=== PATIENT | male | born 1980 | race Hispanic/Latino ===

== ENCOUNTER 2023-02-13 14:21 | Inpatient (IN) | payer SELFPAY ==
[2023-02-13] MEDS ORDERED: Rocuronium Bromide 10 MG/ML (10ML VIAL) ONE (14:26)
[2023-02-13] MEDS ORDERED: Propofol 1,000 MG/100 ML VIAL IV ONE (14:38)
[2023-02-13 14:56] LABS: Actual Bicarbonate (HCO3a) 21.3 mEq/L (22-28); Analyzer IN Cardio ER; Base Excess (BEa) -2.6 mEq/L (-2.0 to +3.0); CO2 Tension 34.6 mmHg (35.0-45.0); Calcium, Ionized (arterial) 1.07 mmol/L (1.12-1.30); Carboxyhemoglobin (COHb) 0.3 gm% (0.0-3.0); Hematocrit-ABG 44 % (42.0-52.0); Hemoglobin (Hb) 15.1 g/dL (14.0-18.0); O2 Tension (PaO2), arterial 306.1 mmHg (80.0-100.0); Potassium - ABG Lab 3.16 mmol/L (3.70-5.30); pH, Arterial 7.407 (7.35-7.45)
[2023-02-13 14:58] LABS: Puncture Site RRA
[2023-02-13 15:13] LABS: #Eosinphils 0.2 thou/uL (0.0-0.7); #Monocytes 0.9 thou/uL (0.11-0.59); #Neutrophils 3.3 thou/uL (1.40-6.50); %Basophils 0.5 % (0.0-1.0); %Lymphocytes 37.8 % (21.0-51.0); %Monocytes 12.9 % (0.0-10.0); %Neutrophils 45.7 % (42.0-75.0); Hemoglobin 14.4 g/dL (14.0-18.0); Mean Corpuscular HGB CONC 33.4 g/dL (32.0-36.0); Mean Corpuscular Hemoglobin 31.5 pg (27.0-31.0); Mean Corpuscular Volume 94.3 fl (78.0-98.0); Mean Platelet Volume 9.6 fL (7.4-10.4); Platelet Count 322 10x3/uL (130-400); RBC Distribution Width 12.5 % (11.5-14.5); Red Blood Cell (RBC) Count 4.57 mill/uL (4.70-6.10); White Blood Cell (WBC) Count 7.3 10x3/uL (4.8-10.8)
[2023-02-13] MEDS ORDERED: Iopamidol-370 76% 500 ML MDV (1 ML CHARGE) ONE (15:18)
[2023-02-13 15:23] LABS: Bacteria/HPF None Seen HPF (None Seen); Bilirubin Negative (Negative); Blood, Urine Negative (Negative); CAUTI Indications for Culture Alt mental st,lethar; Clarity Clear (Clear); Glucose, Urine (Dipstick) Normal (Negative); Ketone, Urine Negative (Negative); Leukocyte Negative Leu/uL (Negative); Nitrite Negative (Negative); Protein, Urine (Dipstick) Negative (Neg-Trace); RBC/HPF 0-3 HPF (0-3); Specific Gravity, Urine 1.004 (1.002-1.036); Squamous Epithelial None Seen HPF (0-3); Urobilinogen Normal mg/dL (Less than 2); WBC/HPF None Seen HPF (0-3)
[2023-02-13 15:29] LABS: Urine Culture Reflex No No
[2023-02-13 15:31] LABS: Amphetamine Detected (NotDetected); Barbiturates Screen Not Detected (NotDetected); Benzodiazepine Screen Not Detected (NotDetected); Cocaine Metabolite Screen Detected (NotDetected); Methadone Not Detected (NotDetected); Methamphetamine Detected (NotDetected); Opiate Screen Not Detected (NotDetected); Oxycodone Screen Not Detected (NotDetected); Phencyclidine (PCP) Not Detected (NotDetected); THC/Cannabinoid Screen Not Detected (NotDetected); Tricyclic Screen Not Detected (NotDetected)
[2023-02-13 15:42] LABS: ALT (SGPT) 260 U/L (8-55); AST (SGOT) 221 U/L (5-34); Alkaline Phosphatase 86 U/L (40-110); Anion Gap 12 mmol/L (10-20); BUN (Urea Nitrogen) 5 mg/dL (8.9-20.6); Bilirubin, Total 0.5 mg/dL (0.2-1.2); Calc. Creatinine Clearance 0 mL/min (70-130); Calcium 8.2 mg/dL (7.8-10.44); Carbon Dioxide 24 mmol/L (22-29); Chloride 106 mmol/L (98-107); Estimated GFR 118; Glucose 106 mg/dL (70-105); Potassium 3.2 mmol/L (3.5-5.1); Sodium 139 mmol/L (136-145)
[2023-02-13 15:44] LABS: Acetaminophen Less than 10 mcg/mL (10.0-30.0); Alcohol 470.1 mg/dL (Less than 10); Lipase 37 U/L (8-78); Salicylate Less than 8.0 mg/dL (15.0-30.0)
[2023-02-13] MEDS ORDERED: Fentanyl CADD 100 ML IV SCH ×2 (15:45→17:45)
[2023-02-13 15:59] LABS: SARS-CoV-2 NAA Rapid Test Not Detected (NotDetected)
[2023-02-13] MEDS ORDERED: Vecuronium 10 MG VIAL IVP PRN (16:07)
[2023-02-13] MEDS ORDERED: Ventilator Sedation Protocol 1 EACH FS SCH (16:07)
[2023-02-13] MEDS ORDERED: Electrolyte Replacement Protocol 1 EACH FS SCH (16:07)
[2023-02-13] MEDS ORDERED: Thiamine HCl 200 MG/2 ML VIAL SLOW IVP SCH (16:15)
[2023-02-13] MEDS ORDERED: Ondansetron PF 4 MG/2 ML Vial IVP PRN (17:00)
[2023-02-13] MEDS ORDERED: Sodium Chloride 0.9% 1,000 ML IV SCH (17:00)
[2023-02-13] MEDS ORDERED: Acetaminophen 650 MG Suppository PR PRN (17:00)
[2023-02-13] MEDS ORDERED: Acetaminophen 325 MG TAB PO PRN (17:00)
[2023-02-13] MEDS: Lactated Ringer's 1,000 ML IV SCH ×2 (17:00→22:42)
[2023-02-13] MEDS ORDERED: Lorazepam 2 MG/ML VIAL ONE (17:12)
[2023-02-13 17:21] VITALS: BMI 27.1
[2023-02-13] MEDS ORDERED: DISCONTINUE PREVIOUS NARCOTIC PAIN MEDICATIONS AND BENZODIAZEPINES FS SCH (17:45)
[2023-02-13] MEDS ORDERED: Propofol BOLUS 1,000 MG/100 ML VIAL IV PRN (17:45)
[2023-02-13] MEDS ORDERED: Lorazepam 2 MG/ML VIAL SLOW IVP PRN (17:45)
[2023-02-13] MEDS ORDERED: Propofol 1,000 MG/100 ML VIAL IV PRN (17:45)
[2023-02-13] MEDS ORDERED: Morphine 2 MG/ML VIAL SLOW IVP PRN (17:45)
[2023-02-13] MEDS ORDERED: Fentanyl BOLUS 250 ML IVPB PRN (17:45)
[2023-02-13] MEDS: Potassium Chloride 20 MEQ in Premix Bag 1 BAG IVPB SCH ×2 (18:38→20:17)
[2023-02-13] MEDS ORDERED: Lactated Ringer's 500 ML IV SCH (22:30)
[2023-02-14] MEDS ORDERED: Dexmedetomidine In 0.9 % NaCl 100 ML IVPB SCH (00:45)
[2023-02-14] MEDS ORDERED: Dexmedetomidine 400 MCG, Admixture Fee 1 EACH in Sodium Chloride 0.9% 96 ML IVPB SCH (01:45)
[2023-02-14] MEDS: Lactated Ringer's 1,000 ML IV SCH ×2 (02:47→06:00)
[2023-02-14 03:47] LABS: #Eosinphils 0.1 thou/uL (0.0-0.7); #Monocytes 0.7 thou/uL (0.11-0.59); #Neutrophils 6.8 thou/uL (1.40-6.50); %Basophils 0.4 % (0.0-1.0); %Eosinophils 1.5 % (0.0-10.0); %Monocytes 7.5 % (0.0-10.0); %Neutrophils 72.3 % (42.0-75.0); Hemoglobin 12.4 g/dL (14.0-18.0); Mean Corpuscular HGB CONC 33.5 g/dL (32.0-36.0); Mean Corpuscular Hemoglobin 31.9 pg (27.0-31.0); Mean Corpuscular Volume 95.1 fl (78.0-98.0); Mean Platelet Volume 9.6 fL (7.4-10.4); Platelet Count 262 10x3/uL (130-400); RBC Distribution Width 12.7 % (11.5-14.5); Red Blood Cell (RBC) Count 3.89 mill/uL (4.70-6.10); White Blood Cell (WBC) Count 9.4 10x3/uL (4.8-10.8)
[2023-02-14 04:17] LABS: ALT (SGPT) 206 U/L (8-55); AST (SGOT) 160 U/L (5-34); Albumin 3.2 g/dL (3.5-5.0); Alcohol 182.1 mg/dL (Less than 10); Alkaline Phosphatase 67 U/L (40-110); Anion Gap 17 mmol/L (10-20); BUN (Urea Nitrogen) 4 mg/dL (8.9-20.6); Bilirubin, Total 0.6 mg/dL (0.2-1.2); Calc. Creatinine Clearance 171 mL/min (70-130); Carbon Dioxide 16 mmol/L (22-29); Chloride 109 mmol/L (98-107); Estimated GFR 120; Globulin 2.3 g/dL (2.4-3.5); Glucose 83 mg/dL (70-105); Phosphorus 3.4 mg/dL (2.3-4.7); Potassium 3.5 mmol/L (3.5-5.1); Protein, Total 5.5 g/dL (6.0-8.3); Sodium 138 mmol/L (136-145)
[2023-02-14 07:17] VITALS: BP 123/79
[2023-02-14 07:46] LABS: Actual Bicarbonate (HCO3a) 20.2 mEq/L (22-28); Base Excess (BEa) -3.3 mEq/L (-2.0 to +3.0); CO2 Tension 31.8 mmHg (35.0-45.0); Calcium, Ionized (arterial) 1.08 mmol/L (1.12-1.30); Carboxyhemoglobin (COHb) 0.3 gm% (0.0-3.0); Hematocrit-ABG 40 % (42.0-52.0); Hemoglobin (Hb) 13.7 g/dL (14.0-18.0); O2 Tension (PaO2), arterial 131.9 mmHg (80.0-100.0); Potassium - ABG Lab 3.74 mmol/L (3.70-5.30)
[2023-02-14 07:48] LABS: Puncture Site RRA
[2023-02-14] MEDS: Potassium Chloride 20 MEQ in Premix Bag 1 BAG IVPB SCH ×2 (07:56→10:13)
[2023-02-14] MEDS ORDERED: Magnesium 2 GM/50 ML(in water) 2 GM in Premix Bag 1 BAG IVPB SCH (08:00)
[2023-02-14] MEDS ORDERED: Multivit, Chewable SF 1 TAB PO SCH (09:00)
[2023-02-14] MEDS ORDERED: Pantoprazole 40 MG VIAL IVP SCH (09:00)
[2023-02-14] MEDS ORDERED: Folic Acid 1 MG TAB PO SCH (09:00)
[2023-02-14 12:19] VITALS: TEMP 98.6
== END 2023-02-14 12:15 | disposition home or self-care (01) | DRG 896 ==
LOC: ERS 14:21 → CCU 16:58
PROVIDERS: ADMIT Internal Medicine Critical Care Medicine; ATTEND Internal Medicine
PROC: 0D9670Z Drainage of Stomach with Drainage Device, Via Natural or Artificial Opening (ICD-10-PCS; principal; 2023-02-13)
PROC: 5A1935Z Respiratory Ventilation, Less than 24 Consecutive Hours (ICD-10-PCS; 2023-02-13)
PROC: 0BH17EZ Insertion of Endotracheal Airway into Trachea, Via Natural or Artificial Opening (ICD-10-PCS; 2023-02-13)
PROC: 4A033R1 Measurement of Arterial Saturation, Peripheral, Percutaneous Approach (ICD-10-PCS; 2023-02-13)
DX: F10.129 Alcohol abuse with intoxication, unspecified (principal); J96.00 Acute respiratory failure, unspecified whether with hypoxia or hypercapnia; F19.10 Other psychoactive substance abuse, uncomplicated; E87.6 Hypokalemia; R91.8 Other nonspecific abnormal finding of lung field; R79.89 Other specified abnormal findings of blood chemistry; Z78.1 Physical restraint status
CPT/HCPCS: 31500; 36415; 36416; 36600; 51702; 70450; 70496; 70498; 71045; 80053; 80306; 80307; 81001; 82805; 83690; 83735; 83880; 84100; 84443; 84484; 85025; 87040; 87086; 93005; 94002; 94003; 94760; 96361; 96365; 99292; C9113; J1650; J2060; J2405; J2704; J3411; J3475; J3480; J3490; J7120; Q9967; U0002